=== PATIENT | female | born 1995 | race Hispanic/Latino ===

== ENCOUNTER 2016-11-24 05:30 | Observation (INO) | payer OTHER ==
--- NOTE | 2016-11-24 05:53 | ED PDOC ---
HPI: Abdomen Chief Complaint (Provider): n/v/d x 2 days History Per: Patient History/Exam Limitations: no limitations Onset/Duration Of Symptoms: Days Outside of [place] travel?: No Current Symptoms Are (Timing): Still Present Context: Food Pain Scale Rating Of: 7 Associated Symptoms: Nausea, Vomiting, Diarrhea, Loss Of Appetite. denies: Fever, Chills, Back Pain, Chest Pain, Constipation, Urinary Symptoms Exacerbating Factors: Food Alleviating Factors: None Last Bowel Movement: Yesterday Additional History Per: Patient Abnormal Vaginal Bleeding: No Last Menstral Period: 11/23/16 <Juliocesar Mock - Last Filed: 11/24/16 06:20> <Gómez Johnson - Last Filed: 11/24/16 19:48> Chief Complaint (Nursing): GI Problem Additional Complaint(s): 20 y/o F presenting with NBNB vomiting x 3 this AM. Associated with 3 episodes of NB diarrhea friday. Patient attributes sx to some bhut[place] food she ate friday night. Also assoc w/ some mild abdominal cramping. Denies f/c/cp/sob/ dysuria, hematuria, back pain/no recent travel/ sick contacts. LMP: 11/23/16, regular flow. PMH: denies PSH: denies Allergies: NKDA Meds: none SH: denies etoh, tobacco, drugs PMD: none (Juliocesar Mock) Supervising Attending Note - Attestation: I have personally seen and examined this patient.: Yes I have fully participated in the care of the patient.: Yes I have reviewed all pertinent clinical information: Yes <Gómez Johnson - Last Filed: 11/24/16 19:48> Past Medical History - Family History Family History: States: No Known Family Hx <Juliocesar Mock - Last Filed: 11/24/16 06:20> <Gómez Johnson - Last Filed: 11/24/16 19:48> Vital Signs: Last Vital Signs Temp 99.3 F 11/24/16 18:59 Pulse 63 11/24/16 18:59 Resp 18 11/24/16 18:59 BP 147/64 11/24/16 18:59 Pulse Ox 100 11/24/16 18:59 - Home Medications Home Medications: Ambulatory Orders Medication Instructions Recorded No Known Home Med 11/24/16 - Allergies Allergies/Adverse Reactions: Allergies Allergy/AdvReac Type Severity Reaction Status Date / Time No Known Allergies Allergy Verified 11/24/16 05:43 Review of Systems Constitutional: Negative for: Fever, Chills, Sweats, Weakness Cardiovascular: Negative for: Chest Pain Respiratory: Negative for: Cough, SOB with Exertion, Wheezing Gastrointestinal: Positive for: Nausea, Vomiting, Abdominal Pain, Diarrhea. Negative for: Constipation, Melena, Hematochezia, Hematemesis Genitourinary Female: Negative for: Dysuria, Hematuria, Pelvic Pain Musculoskeletal: Negative for: Neck Pain Skin: Negative for: Rash, Lesions, Jaundice Neurological: Negative for: Weakness, Numbness Psych: Positive for: Anxiety <Juliocesar Mock - Last Filed: 11/24/16 06:20> Physical Exam - Physical Exam Appears: Positive for: Uncomfortable Head Exam: Positive for: ATRAUMATIC, NORMOCEPHALIC Skin: Positive for: Normal Color, Warm, Dry Eye Exam: Positive for: EOMI, PERRL, Other (mucous membranes moist) Neck: Positive for: Painless ROM Cardiovascular/Chest: Positive for: Regular Rate, Rhythm Respiratory: Positive for: Normal Breath Sounds. Negative for: Accessory Muscle Use, Crackles, Rales, Rhonchi Gastrointestinal/Abdominal: Positive for: Bowel Sounds, Soft. Negative for: Tenderness, Distended, Guarding Back: Negative for: L CVA Tenderness, R CVA Tenderness Extremity: Negative for: Tenderness, Pedal Edema Neurologic/Psych: Positive for: Alert, Oriented <Juliocesar Mock - Last Filed: 11/24/16 06:20> - ECG O2 Sat by Pulse Oximetry: 100 <Juliocesar Mock - Last Filed: 11/24/16 06:20> - Laboratory Results Result Diagrams: 11/24/16 07:37 11/24/16 07:37 <Gómez Johnson - Last Filed: 11/24/16 19:48> - Progress ED Course And Treament: NBNB vomiting and diarrhea 2/2 gastroenteritis v. urine BHCG zofran 8 mg ODT ED PO challenge reassess (Juliocesar Mock) Disposition - Patient ED Disposition Is Patient to be Admitted: Transfer of Care - Disposition Disposition: Transfer of Care Disposition Time: 06:20 <Juliocesar Mock - Last Filed: 11/24/16 06:20> <Gómez Johnson - Last Filed: 11/24/16 19:48> - Clinical Impression Clinical Impression: Gastroenteritis, Dehydration - Disposition Condition: STABLE
[2016-11-24] MEDS: Sodium Chloride 0.9% 1,000 ML IV SCH ×3 (06:37→21:14)
--- NOTE | 2016-11-24 06:45 | ED PDOC ---
- Laboratory Results Result Diagrams: 11/24/16 07:37 11/24/16 07:37 - ECG O2 Sat by Pulse Oximetry: 100 (RA) Pulse Ox Interpretation: Normal Medical Decision Making Medical Decision Making: Time: 0600 Initial plan: Patient signed out to me by Dr. Nish MD. Pending blood work and re- assessment. 0700: Patient signed out to Dr. Wilson at this time. Pending blood work and re- assessment. Scribe Attestation: Documented by Raegan Murillo, acting as a scribe for Gómez Johnson MD. Scribe Attestation: All medical record entries made by the Scribe were at my direction and personally dictated by me. I have reviewed the chart and agree that the record accurately reflects my personal performance of the history, physical exam, medical decision making, and the department course for this patient. I have also personally directed, reviewed, and agree with the discharge instructions and disposition. Disposition - Clinical Impression Clinical Impression: Gastroenteritis, Dehydration - POA Present On Arrival: None - Disposition Disposition: Transfer of Care Disposition Time: 07:00 Condition: STABLE
--- NOTE | 2016-11-24 07:34 | ED PDOC ---
- Laboratory Results Result Diagrams: 11/24/16 07:37 11/24/16 07:37 - ECG O2 Sat by Pulse Oximetry: 100 (RA) Pulse Ox Interpretation: Normal Medical Decision Making Medical Decision Making: Receiving sign out: Patient signed out to me by Dr. Johnson at 0700 pending labs and final disposition. Scribe Attestation: Documented by Alice Baeza acting as a scribe for Nancy Wilson MD. Provider Attestation: All medical record entries made by the Scribe were at my direction and personally dictated by me. I have reviewed the chart and agree that the record accurately reflects my personal performance of the history, physical exam, medical decision making, and the department course for this patient. I have also personally directed, reviewed, and agree with the discharge instructions and disposition. 9.10a - per RN, patient is again c/o nausea and abdominal pain. Patient became ill 2 days ago starting with waterry non-bloody stool which she has had 4 bouts since onset. She started having vomiting this morning. Exam shows a young lady in mod discomfort. Exam shows nonfocal lower abdominal tenderness and right CVA tenderness Disposition Doctor Will See Patient In The: Hospital - Clinical Impression Clinical Impression: Gastroenteritis, Dehydration - POA Present On Arrival: None - Disposition Disposition: Transfer of Care Disposition Time: 14:32 Condition: STABLE ED OBSERVATION Date of observation admission: 11/24/16 Time of observation admission: 09:00 - Observation admission statement Patient is being placed in observation because:: persistent nausea and abd pain - Progress Note Progress Note: 11/24/16 11:00 Patient resting in room, vitals stable.
[2016-11-24 07:53] LABS: BASO % 0.1 % (0.0-2.0); EOS % 0.1 % (0.0-4.0); HEMOGLOBIN 13.2 g/dL (12.0-16.0); LYMPH # 0.7 K/uL (1.0-4.3); LYMPH % 6.4 % (20.0-40.0); MEAN CELL VOLUME 87.8 fl (81.0-99.0); MEAN CORPUSCULAR HEMOGLOBIN 28.5 pg (27.0-31.0); MEAN CORPUSCULAR HGB CONC 32.5 g/dL (33.0-37.0); MEAN PLATELET VOLUME 9.3 fl (7.2-11.7); MONO # 0.4 K/uL (0.0-0.8); MONO % 3.9 % (0.0-10.0); NEUT # 9.4 K/uL (1.8-7.0); NEUT % 89.5 % (50.0-75.0); PLATELET COUNT 230 K/uL (130-400); RBC 4.63 Mil/uL (3.80-5.20); RED CELL DISTRIBUTION WIDTH 13.6 % (11.5-14.5); WHITE BLOOD COUNT 10.6 K/uL (4.8-10.8)
[2016-11-24 08:03] LABS: ALB/GLOB RATIO 1.3 (1.0-2.1); ALBUMIN 5.1 g/dL (3.5-5.0); ALT/SGPT 27 U/L (9-52); AST/SGOT 26 U/L (14-36); BILIRUBIN,DIRECT 0.3 mg/ml (0.0-0.4); BLOOD UREA NITROGEN 9 mg/dl (7-17); CALCIUM 10.2 mg/dL (8.4-10.2); GFR AFRICAN-AMERICAN > 60; GFR NON-AFRICAN AMERICAN > 60
[2016-11-24] MEDS ORDERED: Sodium Chloride 0.9% 1,000 ML IV STA (09:07)
[2016-11-24] MEDS ORDERED: Ciprofloxacin 400mg/200ml D5W 400 MG/200 ML BAG IVPB STA (09:08)
[2016-11-24] MEDS ORDERED: Ciprofloxacin 400mg/200ml D5W 400 MG/200 ML BAG IVPB ONE (09:12)
[2016-11-24 09:13] LABS: SQUAMOUS EPITHIAL 9 /hpf (0-5); URINE BILIRUBIN NEGATIVE (NEGATIVE); URINE BLOOD MODERATE (NEGATIVE); URINE CLARITY CLOUDY (Clear); URINE COLOR YELLOW (YELLOW); URINE GLUCOSE (UA) NEG (Normal); URINE LEUKOCYTE ESTERASE TRACE Leu/uL (Negative); URINE NITRATE NEGATIVE (NEGATIVE); URINE PROTEIN 100 mg/dL (NEGATIVE); URINE UROBILINOGEN 0.2-1.0 mg/dL (0.2-1.0)
[2016-11-24 11:39] LABS: LYMPHOCYTE 7 % (20-50); MONOCYTE 2 % (0-10); NEUTROPHIL 91 % (42-75); TOTAL CELLS COUNTED 100
[2016-11-24 11:40] LABS: PLATELET ESTIMATE NORMAL (NORMAL)
--- NOTE | 2016-11-24 14:17 | US ---
PROCEDURE: HISTORY: LOWER ABD PAIN COMPARISON: TECHNIQUE: FINDINGS: The uterus is normal in size. The end of mitre measures 4 millimeters. There is a 3 cm cyst in the right ovary. The left ovary is unremarkable. There is a small amount of free fluid in the pelvis. IMPRESSION: 3 cm right ovarian cyst.
--- NOTE | 2016-11-24 14:56 | CP.PCM.HP ---
History of Present Illness - History of Present Illness History of Present Illness: 20 yo female with no significant PMH came in because bilious vomiting (10X) since 4 this morning. Patient claimed she has been having generalized abdominal pain since 2 days ago accompanied with 4 episodes of watery diarrhea on the 1st day. She refrained from eating and drinking but the pain had not let up although the diarrhea had stopped. Then this morning she woke up with nausea and vomiting. The abdominal pain described as cramping remained although a little improved probably brought by the vomiting which relieved some pressure from her stomach. Denied fever, chills, chest pain or SOB. Present on Admission - Present on Admission Any Indicators Present on Admission: No History of DVT/PE: No History of Uncontrolled Diabetes: No Urinary Catheter: No Decubitus Ulcer Present: No Review of Systems - Review of Systems All systems: reviewed and no additional remarkable complaints except (aside from those mentioned above, 12 point system review were negative by me) Past Patient History - Tetanus Immunizations Tetanus Immunization: Unknown - Past Medical History & Family History Past Family History: Reviewed and not pertinent - Past Social History Smoking Status: Never Smoked Alcohol: None Drugs: Denies Home Situation {Lives}: With Family - CARDIAC Hx Cardiac Disorders: No - PULMONARY Hx Respiratory Disorders: No - NEUROLOGICAL Hx Neurological Disorder: No - HEENT Hx HEENT Problems: No - RENAL Hx Chronic Kidney Disease: No - ENDOCRINE/METABOLIC Hx Endocrine Disorders: No - HEMATOLOGICAL/ONCOLOGICAL Hx Blood Disorders: No - INTEGUMENTARY Hx Dermatological Problems: No - MUSCULOSKELETAL/RHEUMATOLOGICAL Hx Musculoskeletal Disorders: No - GASTROINTESTINAL Hx Gastrointestinal Disorders: No - GENITOURINARY/GYNECOLOGICAL Hx Genitourinary Disorders: No - PSYCHIATRIC Hx Psychophysiologic Disorder: No Hx Substance Use: No - SURGICAL HISTORY Hx Surgeries: No - ANESTHESIA Hx Anesthesia: No Meds Allergies/Adverse Reactions: Allergies Allergy/AdvReac Type Severity Reaction Status Date / Time No Known Allergies Allergy Verified 11/24/16 05:43 Physical Exam - Constitutional Appears: No Acute Distress - Head Exam Head Exam: ATRAUMATIC - Eye Exam Eye Exam: absent: Scleral icterus - ENT Exam ENT Exam: Mucous Membranes Moist - Neck Exam Neck exam: Negative for: Meningismus - Respiratory Exam Respiratory Exam: absent: Rhonchi, Wheezes, Respiratory Distress - Cardiovascular Exam Cardiovascular Exam: REGULAR RHYTHM, +S1, +S2 - GI/Abdominal Exam GI & Abdominal Exam: Soft. absent: Tenderness - Rectal Exam Rectal Exam: Deferred - Extremities Exam Extremities exam: Negative for: pedal edema - Back Exam Back exam: NORMAL INSPECTION - Neurological Exam Neurological exam: Alert, Oriented x3 - Psychiatric Exam Psychiatric exam: Normal Affect - Skin Skin Exam: Dry, Intact Results - Vital Signs Recent Vital Signs: Last Vital Signs Temp 99 F 11/24/16 14:34 Pulse 55 L 11/24/16 14:34 Resp 20 11/24/16 14:34 BP 133/74 11/24/16 14:34 Pulse Ox 100 11/24/16 14:34 - Labs Result Diagrams: 11/24/16 07:37 11/24/16 07:37 Assessment & Plan (1) Gastroenteritis Status: Acute Comment: place on observation in med/surg. keep NPO. maintain IVF with NSS 150cc/hr (2) Dehydration Status: Acute Comment: continue IVF with NSS 150cc/hr. repeat BMP in am (3) Intractable vomiting with nausea Status: Acute Comment: Zofran 4mg IV q 4hrs prn for vomiting
--- NOTE | 2016-11-24 16:13 | RAD ---
PROCEDURE: Radiographs of the chest and abdomen (obstructive series) HISTORY: abdominal pain COMPARISON: No prior. TECHNIQUE: AP radiograph of the chest, with upright and supine radiographs of the abdomen. FINDINGS: CHEST: Lungs: Clear. Cardiovascular: Normal size heart. No pulmonary vascular congestion. Pleura: No pleural fluid. No pneumothorax. Other findings: None. ABDOMEN AND PELVIS: Bowel: Unremarkable bowel gas pattern. No evidence of mechanical obstruction. Free air: None. Bones: Unremarkable. Other findings: None. IMPRESSION: Unremarkable radiographs of chest and abdomen. No evidence of mechanical bowel obstruction.
[2016-11-25] MEDS: Sodium Chloride 0.9% 1,000 ML IV SCH (04:03)
[2016-11-25 07:06] LABS: BASO % 0.2 % (0.0-2.0); EOS % 0.4 % (0.0-4.0); HEMOGLOBIN 10.9 g/dL (12.0-16.0); LYMPH # 1.9 K/uL (1.0-4.3); LYMPH % 19.2 % (20.0-40.0); MEAN CELL VOLUME 87.7 fl (81.0-99.0); MEAN PLATELET VOLUME 9.2 fl (7.2-11.7); MONO # 0.9 K/uL (0.0-0.8); MONO % 9.2 % (0.0-10.0); NEUT # 7.2 K/uL (1.8-7.0); RBC 3.76 Mil/uL (3.80-5.20); RED CELL DISTRIBUTION WIDTH 13.7 % (11.5-14.5); WHITE BLOOD COUNT 10.1 K/uL (4.8-10.8)
[2016-11-25 07:11] LABS: BLOOD UREA NITROGEN 10 mg/dl (7-17); CALCIUM 8.9 mg/dL (8.4-10.2); GFR AFRICAN-AMERICAN > 60; GFR NON-AFRICAN AMERICAN > 60
[2016-11-25] MEDS ORDERED: Potassium Chloride 10 MEQ in Dextrose 5%/0.9% NS 1,000 ML IV SCH (08:45)
[2016-11-25 08:48] VITALS: BP 108/50; RESP 20; O2SAT 100
[2016-11-25 11:35] LABS: HEMOGLOBIN 11.1 g/dL (12.0-16.0); MEAN CELL VOLUME 87.1 fl (81.0-99.0); MEAN CORPUSCULAR HEMOGLOBIN 29.3 pg (27.0-31.0); MEAN CORPUSCULAR HGB CONC 33.7 g/dL (33.0-37.0); RBC 3.78 Mil/uL (3.80-5.20); RED CELL DISTRIBUTION WIDTH 13.8 % (11.5-14.5)
[2016-11-25 12:33] VITALS: PULSE 51; TEMP 98.7
--- NOTE | 2016-11-25 13:35 | CP.PCM.DIS ---
Provider - Provider Date of Admission: 11/24/16 09:07 Attending physician: Andrew Hernandez MD Time Spent in preparation of Discharge (in minutes): 25 Diagnosis - Discharge Diagnosis (1) Gastroenteritis Status: Acute Hospital Course - Lab Results Lab Results: Most Recent Lab Values WBC 8.0 K/uL (4.8-10.8) 11/25/16 11:10 RBC 3.78 Mil/uL (3.80-5.20) L 11/25/16 11:10 Hgb 11.1 g/dL (12.0-16.0) L 11/25/16 11:10 Hct 33.0 % (34.0-47.0) L 11/25/16 11:10 MCV 87.1 fl (81.0-99.0) 11/25/16 11:10 MCH 29.3 pg (27.0-31.0) 11/25/16 11:10 MCHC 33.7 g/dL (33.0-37.0) 11/25/16 11:10 RDW 13.8 % (11.5-14.5) 11/25/16 11:10 Plt Count 193 K/uL (130-400) 11/25/16 11:10 MPV 9.2 fl (7.2-11.7) 11/25/16 06:00 Neut % (Auto) 71.0 % (50.0-75.0) 11/25/16 06:00 Lymph % (Auto) 19.2 % (20.0-40.0) L 11/25/16 06:00 [place] % (Auto) 9.2 % (0.0-10.0) 11/25/16 06:00 Eos % (Auto) 0.4 % (0.0-4.0) 11/25/16 06:00 Baso % (Auto) 0.2 % (0.0-2.0) 11/25/16 06:00 Neut # 7.2 K/uL (1.8-7.0) H 11/25/16 06:00 Lymph # 1.9 K/uL (1.0-4.3) 11/25/16 06:00 [place] # 0.9 K/uL (0.0-0.8) H 11/25/16 06:00 Eos # 0.0 K/uL (0.0-0.7) 11/25/16 06:00 Baso # 0.0 K/uL (0.0-0.2) 11/25/16 06:00 Neutrophils % (Manual) 91 % (42-75) H 11/24/16 07:37 Lymphocytes % (Manual) 7 % (20-50) L 11/24/16 07:37 Monocytes % (Manual) 2 % (0-10) 11/24/16 07:37 Platelet Estimate Normal (NORMAL) 11/24/16 07:37 RBC Morphology Normal (NORMAL) 11/24/16 07:37 Sodium 139 mmol/l (132-148) 11/25/16 06:00 Potassium 3.5 MMOL/L (3.6-5.0) L 11/25/16 06:00 Chloride 109 mmol/L (98-107) H 11/25/16 06:00 Carbon Dioxide 23 mmol/L (22-30) 11/25/16 06:00 Anion Gap 11 (10-20) 11/25/16 06:00 BUN 10 mg/dl (7-17) 11/25/16 06:00 Creatinine 0.8 mg/dL (0.7-1.2) 11/25/16 06:00 Est GFR ( Amer) > 60 11/25/16 06:00 Est GFR (Non-Af Amer) > 60 11/25/16 06:00 Random Glucose 89 mg/dL (65-105) 11/25/16 06:00 Calcium 8.9 mg/dL (8.4-10.2) 11/25/16 06:00 Total Bilirubin 0.9 mg/dl (0.2-1.3) 11/24/16 07:37 Direct Bilirubin 0.3 mg/ml (0.0-0.4) 11/24/16 07:37 AST 26 U/L (14-36) 11/24/16 07:37 ALT 27 U/L (9-52) 11/24/16 07:37 Alkaline Phosphatase 68 U/L (38-126) 11/24/16 07:37 Total Protein 9.0 G/DL (6.3-8.2) H 11/24/16 07:37 Albumin 5.1 g/dL (3.5-5.0) H 11/24/16 07:37 Globulin 3.9 gm/dL (2.2-3.9) 11/24/16 07:37 Albumin/Globulin Ratio 1.3 (1.0-2.1) 11/24/16 07:37 Urine Color Yellow (YELLOW) 11/24/16 08:33 Urine Clarity Cloudy (Clear) 11/24/16 08:33 Urine pH 6.0 (5.0-8.0) 11/24/16 08:33 Ur Specific [place] 1.029 (1.003-1.030) 11/24/16 08:33 Urine Protein 100 mg/dL (NEGATIVE) 11/24/16 08:33 Urine Glucose (UA) Neg mg/dL (Normal) 11/24/16 08:33 Urine Ketones 80 mg/dL (NEGATIVE) 11/24/16 08:33 Urine Blood Moderate (NEGATIVE) 11/24/16 08:33 Urine Nitrate Negative (NEGATIVE) 11/24/16 08:33 Urine Bilirubin Negative (NEGATIVE) 11/24/16 08:33 Urine Urobilinogen 0.2-1.0 mg/dL (0.2-1.0) 11/24/16 08:33 Ur Leukocyte Esterase Trace [place]/uL (Negative) 11/24/16 08:33 Urine RBC (Auto) 3 /hpf (0-3) 11/24/16 08:33 Urine Microscopic WBC 4 /hpf (0-5) 11/24/16 08:33 Ur Squamous Epith Cells 9 /hpf (0-5) H 11/24/16 08:33 - Hospital Course Hospital Course: 20 y/o lady came in because of intractable vomiting , this was preceded by several bouts of diarrhea, 1. Acute Gastroenteritis prob viral with Intractable Vomiting Diarrhea, abd pain and vomiting now resolved pt was observed in Med Surg IVF hydration Pain mgt anti- emetics given Pt's sxs resolved, Pt tolerated PO diet - ate breakfast and lunch . Discharge Exam - Head Exam Head Exam: ATRAUMATIC, NORMAL INSPECTION, NORMOCEPHALIC - Eye Exam Eye Exam: EOMI, Normal appearance, PERRL Pupil Exam: NORMAL ACCOMODATION - ENT Exam ENT Exam: Mucous Membranes Moist, Normal External Ear Exam - Neck Exam Neck exam: Full Rom - Respiratory Exam Respiratory Exam: NORMAL BREATHING PATTERN. absent: Respiratory Distress - Cardiovascular Exam Cardiovascular Exam: REGULAR RHYTHM, +S1, +S2 - GI/Abdominal Exam GI & Abdominal Exam: Normal Bowel Sounds, Soft. absent: Tenderness - Extremities Exam Extremities exam: full ROM, normal capillary refill, normal inspection, pedal pulses present - Back Exam Back exam: FULL ROM. absent: CVA tenderness (L), CVA tenderness (R) - Neurological Exam Neurological exam: Alert, CN II-XII Intact, Oriented x3, Reflexes Normal - Psychiatric Exam Psychiatric exam: Normal Affect, Normal Mood - Skin Skin Exam: Dry, Normal Color, Warm Discharge Plan - Follow Up Plan Condition: GOOD Disposition: HOME/ ROUTINE Instructions: Gastroenteritis (GEN), How To Wash Your Hands (GEN) Additional Instructions: ff up with PMD key [place] diet
== END 2016-11-25 15:11 | disposition home or self-care (01) ==
LOC: H.ER 05:30 → H.EROBSV 09:07 → H.ERHOLD 14:30 → H.PEDS 18:10
DX: K52.9 Noninfective gastroenteritis and colitis, unspecified (principal); E86.0 Dehydration